=== PATIENT | male | born 2000 | race Caucasian/White ===

== ENCOUNTER 2022-08-05 02:17 | Emergency (ER) | payer BC, OTHER ==
[~2022-08-05] VITALS: Ht 177 cm; Wt 105.0 kg
--- NOTE | 2022-08-05 02:34 | ED Lower Extremity ---
General Chief Complaint: Lower Extremity Stated Complaint: ROLLED R ANKLE ON A CURB,PAIN,SWELLING Source: patient Exam Limitations: no limitations History of Present Illness Date Seen by Provider: Aug 05, 2022 Time Seen by Provider: 02:17 Initial Comments Patient to the ER by private conveyance with his significant other and chief com plaint that just prior to arrival he was stepping off of a curb and inverted his right ankle and is having pain along the lateral portion of his right foot. No previous fractures or surgeries. Allergies and Home Medications Patient Home Medication List Home Medication List Reviewed: Yes Review of Systems Constitutional: No chills, No diaphoresis EENTM: No ear discharge, No hearing loss Respiratory: No cough, No dyspnea on exertion Cardiovascular: no symptoms reported All Other Systems Reviewed Negative Unless Noted: Yes Past Ladujya-Gtnjbb-Slvqel Hx Patient Social History Tobacco Use?: No Use of E-Cig and/or Vaping dev: No Physical Exam Vital Signs Vital Signs - First Documented 08/05/22 02:28 Temp 36.6 Pulse 71 Resp 16 B/P (MAP) 124/80 (95) Pulse Ox 99 O2 Delivery Room Air Capillary Refill : Height, Weight, BMI Height: '" Weight: lbs. oz. kg; BMI Method: General Appearance: WD/WN, no apparent distress HEENT: PERRL/EOMI, pharynx normal Neck: full range of motion, normal inspection Cardiovascular: normal peripheral pulses (Symmetric bilateral dorsal pedal pulse.), regular rate, rhythm Respiratory: no respiratory distress, no accessory muscle use Ankles: bilateral ankle non-tender, bilateral ankle normal inspection, bilateral ankle normal range of motion, bilateral ankle no evidence of injury Feet: left foot non-tender; bilateral foot normal inspection, bilateral foot normal range of motion; left foot no evidence of injury; right foot bone tenderness (Fourth and fifth metatarsal mild tenderness palpation without e cchymosis deformity or crepitus), right foot soft tissue tenderness (Lateral right foot) Neurologic/Psychiatric: alert, normal mood/affect Progress/Results/Core Measures Results/Orders My Orders Orders - ROBBY MEIER Foot, Right, 3 View (08/05/22 02:28) Vital Signs/I&O 08/05/22 02:28 Temp 36.6 Pulse 71 Resp 16 B/P (MAP) 124/80 (95) Pulse Ox 99 O2 Delivery Room Air Progress Progress Note : Time: 02:34 Progress Note Plain film right foot. Ice pack. Diagnostic Imaging Diagonstic Imaging: Xray Plain Films/CT/US/NM/MRI: chest Comments No acute osseous abnormalities on 3 view foot x-ray. Reviewed: Reviewed by Me Departure Impression Primary Impression: Sprain or strain of foot Disposition: 01 HOME, SELF-CARE Condition: Stable Departure-Patient Inst. Decision time for Depature: 02:58 Referrals: NO,LOCAL PHYSICIAN (PCP) Primary Care Physician ANABELLA VALLE MD Patient Instructions: Foot Sprain (DC) Add. Discharge Instructions: Ice 20 minutes on every 2 hours while awake for the first 2 to 3 days. Tylenol 1000 mg every 8 hours needed for pain. Ibuprofen 800 mg every 8 hours as needed for pain. Elevate the foot above the level of your heart to reduce swelling and pain for the first 1 to 2 days as necessary. You may bear weight as tolerated. If you are still having significant pain in 7 to 10 days out then you may follow-up with your primary care doctor or see Dr. Valle, orthopedic surgery for follow-up care. All discharge instructions reviewed with patient and/or family. Voiced understanding. Work/School Note: Work Release Form Date Seen in the Emergency Department: Aug 05, 2022 Return to Work: Aug 06, 2022 Restrictions: Need Release from Doctor Other Restrictions Listed Below: Minimize prolonged standing or walking until 06/11/2022. Copy Copies To 1: ANABELLA VALLE MD, TITUS J Aug 05, 2022 02:34
[2022-08-05 03:12] VITALS: BP 124/80
--- NOTE | 2022-08-05 07:01 | Diagnostic Imaging Report ---
INDICATION: Foot pain COMPARISON: None available TECHNIQUE: 3 radiographs of the right foot dated 08/05/2022. FINDINGS: No acute fracture or dislocation. No destructive osseous process. Mild scattered degenerative changes, greatest involving the 1st MTP joint where there is joint space narrowing. The Lisfranc joint is well aligned. No suspicious radiopaque foreign body. IMPRESSION: No acute osseous abnormality with minimal degenerative changes present. Dictated by: Dictated on workstation # [id number]
== END 2022-08-05 03:13 | disposition home or self-care (01) ==
LOC: ER 02:20
DX: S93.601A Unspecified sprain of right foot, initial encounter (principal); S96.911A Strain of unspecified muscle and tendon at ankle and foot level, right foot, initial encounter; W10.1XXA Fall (on)(from) sidewalk curb, initial encounter
CPT/HCPCS: 73630